=== PATIENT | female | born 1980 | race Two or more races ===

== ENCOUNTER → 2019-12-24 | Outpatient (CLI) | payer OTHER | END | disposition home or self-care (01) | LOC: LAB 15:11 | PROVIDERS: ATTEND Nurse Practitioner Family | DX: U07.1 COVID-19 (principal) ==

== ENCOUNTER → 2021-07-26 | Outpatient (CLI) | payer BC ==
[2021-07-26 07:29] LABS: Basophils # (auto) 0 10 ^3/uL (0-0.2); Basophils % (auto) 0.6 % (0.0-2.0); Eosinophils # (auto) 0.3 10 ^3/uL (0-0.8); Eosinophils % (auto) 4.7 % (0.0-7.0); Hematocrit 39.9 % (36.0-46.0); Hemoglobin 13.1 g/dL (12.2-16.2); Lymphocytes # (auto) 2.2 10 ^3/uL (0.4-5.4); Lymphocytes % (auto) 33.4 % (10.0-50.0); Mean Corpuscular Hemoglobin 28.7 pg (28.0-32.0); Mean Corpuscular Hgb Conc. 32.9 g/dL (32.0-36.0); Mean Corpuscular Volume 87.4 fL (80.0-100.0); Monocytes # (auto) 0.4 10 ^3/uL (0-1.3); Monocytes % (auto) 5.6 % (0.0-12.0); Neutrophils # (auto) 3.7 10 ^3/uL (1.6-8.6); Neutrophils % (auto) 55.7 % (37.0-80.0); Nucleated Red Blood Cells % 0.1 %; Red Blood Cells 4.57 10^6/uL (4.0-5.20); Red Cell Distribution Width 14.8 % (11.8-14.3); White Blood Cell 6.7 10^3/uL (4.4-10.8)
[2021-07-26 07:59] LABS: Urine Bacteria FEW /hpf (None Seen); Urine Blood Negative /uL (Negative); Urine Specific Gravity 1.027 (1.001-1.035); Urine WBC 1 /hpf (0 - 5)
[2021-07-26 08:11] LABS: Albumin 3.2 g/dL (3.4-5.0); Calcium 9.1 mg/dL (8.5-10.1); Potassium 4.1 mmol/L (3.5-5.1)
[2021-07-26 08:17] LABS: Bilirubin, Total 0.2 mg/dL (0.2-1.0); Total Protein 6.9 g/dL (6.4-8.2)
[2021-07-26 09:00] LABS: Free T4 (Free Thyroxine) 0.9 ng/dL (0.89-1.76)
[2021-07-26 09:01] LABS: Free T3 2.84 pg/mL (2.3-4.2)
== END | disposition home or self-care (01) ==
LOC: LAB 06:47
PROVIDERS: ATTEND Student in an Organized Health Care Education/Training Program
DX: R73.9 Hyperglycemia, unspecified (principal); R03.0 Elevated blood-pressure reading, without diagnosis of hypertension
CPT/HCPCS: 36415; 80053; 80061; 81001; 82306; 83036; 84439; 84443; 84481; 85025

== ENCOUNTER → 2024-02-21 | Outpatient (CLI) | payer BC ==
[2024-02-21 11:13] LABS: Urine Bacteria None Seen /hpf (None Seen)
[2024-02-21 11:47] LABS: Basophils # (auto) 0 10 ^3/uL (0-0.2); Basophils % (auto) 0.4 % (0.0-2.0); Eosinophils # (auto) 0.2 10 ^3/uL (0-0.8); Eosinophils % (auto) 1.7 % (0.0-7.0); Hematocrit 43.3 % (36.0-46.0); Lymphocytes # (auto) 3.1 10 ^3/uL (0.4-5.4); Lymphocytes % (auto) 27.5 % (10.0-50.0); Mean Corpuscular Hemoglobin 27.4 pg (28.0-32.0); Mean Corpuscular Hgb Conc. 32.4 g/dL (32.0-36.0); Mean Corpuscular Volume 84.7 fL (80.0-100.0); Monocytes # (auto) 0.6 10 ^3/uL (0-1.3); Monocytes % (auto) 5.4 % (0.0-12.0); Neutrophils # (auto) 7.3 10 ^3/uL (1.6-8.6); Platelet Count (auto) 400 10^3/uL (140-450); Red Blood Cells 5.11 10^6/uL (4.0-5.20); Red Cell Distribution Width 14.1 % (11.8-14.3); White Blood Cell 11.3 10^3/uL (4.4-10.8)
[2024-02-21 12:01] LABS: Urine Blood Negative /uL (Negative); Urine Clarity Clear (Clear); Urine Color Light-Yellow (Yellow); Urine Mucus FEW (None Seen); Urine Protein, UAD Negative (Negative); Urine Specific Gravity 1.028 (1.001-1.035); Urine Urobilinogen Normal (Negative); Urine WBC <1 /hpf (0 - 5)
[2024-02-21 12:47] LABS: Alanine Aminotransferase 17 U/L (7-40); Alkaline Phosphatase 57 U/L (46-116); Anion Gap 6 (5-15); BUN/Creatinine Ratio 21.3 (10.0-20.0); Blood Urea Nitrogen 16 mg/dL (9-23); Calcium 9.9 mg/dL (8.7-10.4); Carbon Dioxide 26 mmol/L (20-31); Chloride 107 mmol/L (98-107); Glucose 80 mg/dL (74-106); Potassium 4.2 mmol/L (3.5-5.1); Sodium 139 mmol/L (136-145); Triglycerides 41 mg/dL (< 150)
[2024-02-21 12:48] LABS: LDL Cholesterol 108 mg/dL (< 100)
[2024-02-21 12:49] LABS: Albumin 4.3 g/dL (3.2-4.8); Aspartate Aminotransferase 14 U/L (13-40); Bilirubin, Total 0.3 mg/dL (0.2-1.0); Cholesterol 186 mg/dL (< 200); HDL Cholesterol 71 mg/dL (40-59)
== END | disposition home or self-care (01) ==
LOC: LAB 10:25
PROVIDERS: ATTEND Nurse Practitioner
DX: I10 Essential (primary) hypertension (principal); E78.5 Hyperlipidemia, unspecified; R93.9 Diagnostic imaging inconclusive due to excess body fat of patient
CPT/HCPCS: 36415; 80053; 80061; 81001; 83036; 84443; 85025

== ENCOUNTER 2024-04-28 09:23 | Emergency (ER) | payer BC ==
[~2024-04-28] VITALS: Ht 160 cm; Wt 118.9 kg
[2024-04-28] MEDS ORDERED: AUG875T PO (11:08)
[2024-04-28] MEDS ORDERED: PSEU1SYP6 PO (11:08)
[2024-04-28] MEDS ORDERED: DEX4T PO (11:08)
[2024-04-28] MEDS ORDERED: IBUP-1455 PO (11:08)
--- NOTE | 2024-04-28 11:10 | ED.PDOC ---
Eye-HPI HPI Comments 43-year-old female patient presents to the clinic for sore throat, bilateral ear pain, and cough. Patient reports that she went to urgent care as prescribed amoxicillin. Patient states that the pain did not decreased she returned to ear and Saturday was told to discontinue the amoxicillin and started a Z-Bautista. Patient denies any fevers. Patient denies any drainage from the ears. Patient also complaining of pain on left side of sec. denies any dental pain. Chief Complaint: Earache Time Seen by MD: 09:41 Primary Care Provider: AKIKO Allergies: Uncoded Allergies: NUTS (Allergy, Unknown, 04/28/24) Home Meds Active Scripts Dexamethasone (Decadron) 4 Mg Tb, 2 TAB PO DAILY for 5 Days, #10 TAB 0 Refills Prov:ENRIQUE GAMEZ [facility] 04/28/24 Kywsfyewvsm-Oddutipd-Vn (Bromphen/Pseudoephedrine 30-2-10 mg/5Ml) 1 Syp Syp, 10 ML PO Q6HP PRN for 10 Days, #400 ML Prov:ENRIQUE GAMEZ [facility] 04/28/24 Ibuprofen Micronized (Ibuprofen) 800 Mg Tab, 600 MG PO TID PRN for 10 Days, #30 TAB 0 Refills Prov:ENRIQUE GAMEZ [facility] 04/28/24 Amoxicillin & Pot Clavulanate (AUGMENTIN TABLET) 875 Mg Tb, 875 MG PO BID for 10 Days, #20 TAB 0 Refills Prov:ENRIQUE GAMEZ [facility] 04/28/24 Mode of Arrival: Ambulatory Past Medical History PAST MEDICAL HISTORY: Denies Surgical History: Denies all surgeries STAFF PHYSICIAN History: No Pertinent STAFF PHYSICIAN History Family History Family History: Reviewed,noncontributory to illness, No family hx of Cancer, No family hx of DM, No family hx of Heart magaly, No family hx of HTN, No family hx ofKidney magaly, No family hx of Liver magaly, No family hx of Lung magaly, No family hx of Stroke Social History Smoker: Non-Smoker Alcohol: Denies ETOH Use Drugs: Denies Drug Use Lives In: Home Constitutional: denies: chills, diaphoresis, fatigue, fever, malaise, sweats, weakness, others EENTM: reports: ear pain (bilateral), throat pain, others (left neck pain) Respiratory: denies: cough, hemoptysis, orthopnea, SOB at rest, shortness of breath, SOB with excertion, stridor, wheezing, others Cardiovascular: denies: chest pain, dizzy spells, diaphoresis, Dyspnea on exertion, edema, irregular heart beat, left arm pain, lightheadedness, palpitations, PND, syncope, others Gastrointestinal: denies: abdomen distended, abdominal pain, blood streaked bowels, constipated, diarrhea, dysphagia, difficulty swallowing, hematemesis, melena, nausea, poor appetite, poor fluid intake, rectal bleeding, rectal pain, vomiting, others Genitourinary: denies: abnormal vagina bleeding, burning, dyspareunia, dysuria, flank pain, frequency, hematuria, incontinence, pain, , vagina discharge, urgency, others Neurological: denies: dizziness, fainting, headache, left sided numbness, left sided weakness, numbness, paresthesia, pre-existing deficit, right sided numbness, right sided weakness, seizure, speech problems, tingling, tremors, weakness, others Musculoskeletal: denies: back pain, gout, joint pain, joint swelling, muscle pain, muscle stiffness, neck pain, others Integumetry: denies: bruises, change in color, change in hair/nails, dryness, laceration, lesions, lumps, rash, wounds, others Allergic/Immunocompromised: denies: Difficulty Healing, Frequent Infections, Hives, Itching, others Hematologic/Lymphatic: denies: anemia, blood clots, easy bleeding, easy bruising, swollen glands, others Endocrine: denies: excessive hunger, excessive sweating, excessive thirst, excessive urination, flushing, intolerance to cold, intolerance to heat, unexplained weight gain, unexplained weight loss, others Psychiatric: denies: anxiety, bipolar disorder, depression, hopeless, panic disorder, schizophrenia, sleepless, suicidal, others All Other Systems: Reviewed and Negative Physical Exam General Appearance: No Apparent Distress, Normal HEENT: Pharyngeal Erythema, TM Abnormal (R) (bulging and erythema on right TM) Neck: Full Range of Motion, Non-Tender, Normal, Normal Inspection Respiratory: Chest Non-Tender, Lungs Clear, No Accessory Muscle Use, No Respiratory Distress, Normal Breath Sounds Cardiovascular: No Edema, No JVD, No Murmur, No Gallop, Normal Peripheral Pulses, Regular Rate/Rhythm Breast Exam: Deferred Gastrointestinal: No Organomegaly, Non Tender, No Pulsatile Mass, Normal Bowel Sounds, Soft Genitalia: Deferred Pelvic: Deferred Rectal: Deferred Extremities: No calf tenderness, Normal capillary refill, Normal inspection, Normal range of motion, Non-tender, No pedal edema Musculoskeletal : Apperance: Normal Neurologic: Alert, 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 Was a procedure done?: No EENT DIFF Eye: N/A Ear: Otitis Externa, Otitis Media, Perforation, Pharyngitis, Sinusitis Nose: N/A Mouth: N/A Sore Throat: Peritonsillar Abscess, Peritonsillar Cellulitis, Pharyngitis, Streptococcal, Viral Pharyngitis, URI X-Ray, Labs, Meds, VS Vital Signs Date Time Temp Pulse Resp B/P (MAP) Pulse Ox O2 Delivery O2 Flow Rate FiO2 04/28/24 12:07 17 97 Room Air* 0 21 04/28/24 12:06 98.1 78 17 118/82 (94) 97 98.1 04/28/24 09:35 99.1 97 16 141/82 (101) 98 Current Medications Medications (Trade) Dose Ordered Sig/Kenna Route Start Time Stop Time Status Last Admin Penicillin G Benzathine (Bicillin L-A) 1,200,000 units ONCE ONCE IM 04/28/24 11:00 04/28/24 11:01 DC 04/28/24 11:49 Dexamethasone Sodium Phosphate (Decadron Injection) 10 mg ONCE ONCE PO 04/28/24 11:00 04/28/24 11:01 DC 04/28/24 11:49 Benzocaine (Hurricaine [place]) 1 spr ONCE ONCE MT 04/28/24 11:00 04/28/24 11:01 DC 04/28/24 11:48 Ketorolac Tromethamine (Toradol Injection) 60 mg ONCE ONCE IM 04/28/24 11:15 04/28/24 11:16 DC 04/28/24 11:50 X-Ray, Labs, Meds, VS Comment Patient advised to take antibiotics as prescribed. Patient advised to take the cough medicine as prescribed. Patient advised to stay home from work for the next 3 days. Patient to follow up with primary care physician. Patient return to ER if she is not getting better. On re-evaluation patient has symptomatic improvement. Patient is stable for discharge at this time. All test results and diagnostic imaging have been interpreted. All diagnostic findings, discharge care, and education instruction provided to the patient. Follow-up with PCP in 2-3 days Patient verbalized understanding, discharge instructions and agrees to treatment plan Vital signs are stable Patient is ambulatory Patient advised of which symptoms necessitate a return visit to the emergency room. Patient to return emergency room for any new worsening symptoms. Patient is aware that the purpose of this visit is for an acute medical emergency requiring emergent stabilization. Chronic conditions, including malignancies have not been ruled out. Patient is instructed to follow up with PCP as directed for continued care and workup. If unable to arrange follow up, patient is to return to the emergency room for reassessment. Patient was given verbal and written discharge instructions and acknowledges understanding Time of 1ST Reevaluation: 11:38 Reevaluation 1ST: Unchanged Patient Education/Counseling: Diagnosis, Treatment, Prognosis, Need For Follow Up Family Education/Counseling: No Family Present Departure 1 Departure Time of Disposition: 11:09 Impression: Primary Impression: Acute tonsillitis Qualified Codes: J03.80 - Acute tonsillitis due to other specified organisms Additional Impression: Otitis media Qualified Codes: H66.91 - Otitis media, unspecified, right ear Disposition: 01 HOME / SELF CARE / HOMELESS Condition: Stable e-Prescriptions Dexamethasone (Decadron) 4 Mg Tb 2 TAB PO DAILY for 5 Days, #10 TAB 0 Refills Prov: ENRIQUE GAMEZ [facility] 04/28/24 Mptkllunleq-Ogywdkyu-Ew (Bromphen/Pseudoephedrine 30-2-10 mg/5Ml) 1 Syp Syp 10 ML PO Q6HP PRN for 10 Days, #400 ML Prov: ENRIQUE GAMEZ [facility] 04/28/24 Ibuprofen Micronized (Ibuprofen) 800 Mg Tab 600 MG PO TID PRN for 10 Days, #30 TAB 0 Refills Prov: ENRIQUE GAMEZ [employer] 04/28/24 Amoxicillin & Pot Clavulanate (AUGMENTIN TABLET) 875 Mg Tb 875 MG PO BID for 10 Days, #20 TAB 0 Refills Prov: ENRIQUE GAMEZ 04/28/24 Discharged With: Self Critical Care Note Critical Care Time?: No Stability Stability form required: No Heart Score Heart Score: Heart Score Response (Comments) Value History N/A 0 EKG N/A 0 Age N/A 0 Risk Factors N/A 0 Troponin N/A 0 Total 0 ENRIQUE GAMEZ [facility] Apr 28, 2024 11:10
[2024-04-28] MEDS: BENZOCAINE (DENTAL) 20 % SPRAY 60ML MT ONE (11:48)
[2024-04-28] MEDS: DexAMETHasone SOD PHOS 10MG/1ML VIAL INJ PO ONE (11:49)
[2024-04-28] MEDS: PENICILLIN G BENZ 1,200,000 UNITS/2 ML SYRG IM ONE (11:49)
[2024-04-28] MEDS: KETOROLAC TROMETH 60MG/2ML VIAL IM ONE (11:50)
[2024-04-28 12:06] VITALS: BP 118/82; PULSE 78; TEMP 98.1
[2024-04-28 12:07] VITALS: RESP 17; O2SAT 97
== END 2024-04-28 12:09 | disposition home or self-care (01) ==
LOC: ER 09:23
DX: J03.80 Acute tonsillitis due to other specified organisms (principal); H66.93 Otitis media, unspecified, bilateral; Z88.8 Allergy status to other drugs, medicaments and biological substances; Z79.899 Other long term (current) drug therapy
CPT/HCPCS: 96372; 99284; J0561; J1100; J1885

== ENCOUNTER → 2025-01-21 | Outpatient (CLI) | payer BC ==
[~2025-01-21] MED LIST: AUG875T PO; DEX4T PO; IBUP-1455 PO; PSEU1SYP6 PO
[2025-01-21 08:47] LABS: Hematocrit 40.1 % (36.0-46.0); Hemoglobin 13.9 g/dL (12.2-16.2); Mean Corpuscular Hemoglobin 28.6 pg (28.0-32.0); Mean Corpuscular Volume 82.7 fL (80.0-100.0); Nucleated Red Blood Cells % 0.0 %
[2025-01-21 08:49] LABS: Urine Protein, UAD Negative (Negative)
[2025-01-21 09:35] LABS: Alanine Aminotransferase 11 U/L (7-40); Albumin 4.2 g/dL (3.2-4.8); Alkaline Phosphatase 56 U/L (46-116); Anion Gap 8 (5-15); BUN/Creatinine Ratio 14.3 (10.0-20.0); Blood Urea Nitrogen 11 mg/dL (9-23); Calcium 9.5 mg/dL (8.7-10.4); Carbon Dioxide 26 mmol/L (20-31); Chloride 105 mmol/L (98-107); Glucose 84 mg/dL (74-106); Potassium 4.2 mmol/L (3.5-5.1); Sodium 139 mmol/L (136-145); Total Protein 7.7 g/dL (5.7-8.2); Triglycerides 39 mg/dL (< 150)
[2025-01-21 09:36] LABS: Bilirubin, Total 0.5 mg/dL (0.2-1.0); Cholesterol 195 mg/dL (< 200)
[2025-01-21 09:41] LABS: HDL Cholesterol 66 mg/dL (40-59)
== END | disposition home or self-care (01) ==
LOC: LAB 08:24
PROVIDERS: ATTEND Nurse Practitioner
DX: I10 Essential (primary) hypertension (principal); E73.9 Lactose intolerance, unspecified; E78.5 Hyperlipidemia, unspecified
CPT/HCPCS: 36415; 80053; 80061; 81001; 83036; 84443; 85025

== ENCOUNTER 2025-01-26 10:44 | Outpatient (CLI) | payer BC | END 2025-01-26 17:00 | disposition home or self-care (01) | LOC: LAB 10:44 | PROVIDERS: ATTEND Nurse Practitioner | DX: Z01.84 Encounter for antibody response examination (principal) | CPT/HCPCS: 86735; 86762; 86765; 86787 ==

== ENCOUNTER 2025-03-24 15:08 | Emergency (ER) | payer BC ==
[~2025-03-24] VITALS: Ht 160 cm; Wt 111.1 kg
[2025-03-24 15:09] VITALS: TEMP 98
[2025-03-24 15:56] LABS: Hematocrit 38.9 % (36.0-46.0); Hemoglobin 12.7 g/dL (12.2-16.2); Mean Corpuscular Hemoglobin 27.4 pg (28.0-32.0); Mean Corpuscular Volume 83.8 fL (80.0-100.0); Nucleated Red Blood Cells % 0.1 %
--- NOTE | 2025-03-24 15:58 | ED.PDOC ---
GI ASSESSMENT HPI Comments HPI: This is a 44 year old female presenting to the ED with chief complaint of abdominal pain. Patient reports that she has been experiencing RUQ abdominal pain with associated nausea and intermittent lower abdominal pain for the past 2 days. Patient relays that her pain comes on intermittently and when it does, it is a 7/10. Patient states she has no pain at this time and her pain is not related to food intake. Patient denies any vomiting, diarrhea, chest pain, SOB, hematemesis, fever, or chills. Past Medical history: Denies Past Surgical history: Denies Medications: Reviewed Social History: Denies smoking, ETOH, and drug use. Allergies: NKDA HPI: Poor Historian. REVIEW OF SYSTEMS: CONSTITUTIONAL: Denies acute: fever, diaphoresis, chills, generalized weakness. HEAD: Denies acute: headache, photophobia Eyes: Denies acute: Double vision, vision loss, eye pain, eye discharge. EARS: Denies acute: tinnitus, hearing loss, ear discharge, ear pain, THROAT: Denies acute: sore throat, swelling, difficulty swallowing , pain with swallowing, change in voice. NECK: Denies acute: neck pain, neck swelling, stiff neck. HEART: Denies acute : chest pain, palpitations, LUNGS: Denies acute: SOB, wheezing, cough, hemoptysis ABDOMEN: Denies acute: Vomiting, diarrhea, melena , hematemesis, hematochezia SKIN: Denies acute: rash, redness, lesions, itchiness. EXTREMITIES: Denies acute: calf pain, numbness, tingling, weakness, denies pain in extremity. Denies acute: Low back pain. Neuro: Denies acute: focal neurological deficit, motor or sensory focal neurological deficit, tremors, seizure like activity, confusion, dizziness, change in mental status, loss of bowel or bladder function, cauda equina like symptoms. : Denies acute: dysuria, hematuria, flank pain, increase in urinary frequency. PSYCH: Denies acute: hallucination, suicidal ideation, homicidal ideation. FEMALE: Denies acute: abnormal vaginal bleeding, foul odor, unusual discharge. PHYSICAL EXAM: General: ----no----acute distress, awake and alert. Head: normocephalic, atraumatic. No raccoon's eyes, no moffett sign. Neck: supple, trachea is midline, no swelling. Throat: Normal phonation. Eyes:, no erythema, no purulent discharge, no proptosis, no icterus. Heart: regular rate, regular rhythm, no significant murmur appreciated. Lungs: no apparent respiratory distress, Able to speak in full sentences. No wheezing, no rhonchi, no crackles. No stridors Clear to auscultation bilaterally. Abdomen: Right upper quadrant tender to palpation, non distended, soft, no guarding, no rebound, + bowel sounds. Neuro: Awake, Alert, oriented to name, self, situation, follows commands GCS=15. Speech is normal. Skin: no petechia, no purpura, no cyanosis, non-pale, not jaundice. Lower extremities: --no - Pitting edema no deformity, no focal swelling, no calf TTP. Makes eye contact. moves all four extremities. Face: no apparent facial droop. Ambulating in the ED independently. ED COURSE: DISCLAIMER: This medical document was created using an electronic medical record system with voice recognition software and computerized dictation system. Although this document has been carefully reviewed, there might still be some phonetic and typographical errors. Occasional wrong-word or "sound-alike" substitutions may have occurred due to the inherent limitations of voice recognition software. These areas are purely typographical due to imperfections of the software programs and do not reflect any compromise in the patient's medical care. Please read the chart carefully and recognize, using context, where these substitutions have occurred. Chief Complaint: Abdominal Pain Time Seen by MD: 15:55 Primary Care Provider: AKIKO Martel Notes: Medications, Allergies Allergies: Uncoded Allergies: NUTS (Allergy, Unknown, 04/28/24) Home Meds Active Scripts Dexamethasone (Decadron) 4 Mg Tb, 2 TAB PO DAILY for 5 Days, #10 TAB 0 Refills Prov:ENRIQUE GAMEZ [employer] 04/28/24 Ohupjkbkkey-Rzwulxax-Ya (Bromphen/Pseudoephedrine 30-2-10 mg/5Ml) 1 Syp Syp, 10 ML PO Q6HP PRN for 10 Days, #400 ML Prov:ENRIQUE GAMEZ [facility] 04/28/24 Ibuprofen Micronized (Ibuprofen) 800 Mg Tab, 600 MG PO TID PRN for 10 Days, #30 TAB 0 Refills Prov:ENRIQUE GAMEZ [facility] 04/28/24 Amoxicillin & Pot Clavulanate (AUGMENTIN TABLET) 875 Mg Tb, 875 MG PO BID for 10 Days, #20 TAB 0 Refills Prov:ENRIQUE GAMEZ [facility] 04/28/24 Information Source: Patient Mode of Arrival: Ambulatory Was a procedure done? Was a procedure done?: No GI differential Dx Differential Diagnosis: Cholecystitis, Gastritis/PUD X-Ray, Labs, Meds, VS Vital Signs Date Time Temp Pulse Resp B/P (MAP) Pulse Ox O2 Delivery O2 Flow Rate FiO2 03/24/25 15:09 98.0 81 18 98/69 98 98.0 Lab Test 03/24/25 16:00 03/24/25 15:39 Range/Units Urine Color Light-yellow Yellow Urine Clarity Clear Clear Urine pH 6.5 5.0-9.0 Urine Specific Roxana 1.028 1.001-1.035 Urine Protein Negative Negative Urine Ketones Negative Negative Urine Blood Trace H Negative /uL Urine Nitrite Negative Negative Urine Bilirubin Negative Negative Urine Urobilinogen Normal Negative mg/dL Urine Leukocyte Esterase Negative Negative /uL Urine RBC 1 0 - 4 /hpf Urine Microscopic WBC < 1 0-5 /HPF Urine Squamous Epithelial Cells Few <5 /hpf Urine Bacteria None seen None Seen /hpf Urine Glucose Normal Normal mg/dL Urine Test Negative Negative White Blood Count 12.4 H 4.4-10.8 10^3/uL Red Blood Count 4.64 4.0-5.20 10^6/uL Hemoglobin 12.7 12.2-16.2 g/dL Hematocrit 38.9 36.0-46.0 % Mean Corpuscular Volume 83.8 80.0-100.0 fL Mean Corpuscular Hemoglobin 27.4 L 28.0-32.0 pg Mean Corpuscular Hemoglobin Concent 32.7 32.0-36.0 g/dL Red Cell Distribution Width 14.7 H 11.8-14.3 % Platelet Count 369 140-450 10^3/uL Mean Platelet Volume 7.9 6.9-10.8 fL Neutrophils (%) (Auto) 71.3 37.0-80.0 % Lymphocytes (%) (Auto) 21.5 10.0-50.0 % Monocytes (%) (Auto) 5.6 0.0-12.0 % Eosinophils (%) (Auto) 1.2 0.0-7.0 % Basophils (%) (Auto) 0.4 0.0-2.0 % Neutrophils # (Auto) 8.8 H 1.6-8.6 10 ^3/uL Lymphocytes # (Auto) 2.7 0.4-5.4 10 ^3/uL Monocytes # (Auto) 0.7 0-1.3 10 ^3/uL Eosinophils # (Auto) 0.2 0-0.8 10 ^3/uL Basophils # (Auto) 0.1 0-0.2 10 ^3/uL Nucleated Red Blood Cells 0.1 % Sodium Level 141 136-145 mmol/L Potassium Level 4.4 3.5-5.1 mmol/L Chloride Level 107 98-107 mmol/L Carbon Dioxide Level 25 20-31 mmol/L Anion Gap 9 5-15 Blood Urea Nitrogen 19 9-23 mg/dL Creatinine 0.68 0.550-1.02 mg/dL Glomerular Filtration Rate Calc 111 >90 mL/min BUN/Creatinine Ratio 27.9 H 10.0-20.0 Serum Glucose 86 74-106 mg/dL Lactic Acid Level 0.6 0.4-2.0 mmol/L Calcium Level 9.2 8.7-10.4 mg/dL Total Bilirubin 0.3 0.2-1.0 mg/dL Direct Bilirubin < 0.1 <0.3 mg/dL Aspartate Amino Transferase (AST) 20 13-40 U/L Alanine Aminotransferase (ALT) 19 7-40 U/L Alkaline Phosphatase 59 46-116 U/L Troponin I High Sensitivity < 3 L </=34 ng/L Total Protein 7.0 5.7-8.2 g/dL Albumin 3.8 3.2-4.8 g/dL Lipase 47 12-53 U/L Time of 1ST Reevaluation: 16:55 Reevaluation 1ST: Unchanged Patient Education/Counseling: Diagnosis, Treatment Family Education/Counseling: No Family Present Departure 1 Departure Time of Disposition: 16:29 Impression: Primary Impression: Right upper quadrant pain Disposition: 01 HOME / SELF CARE / HOMELESS Condition: Stable Additional Instructions: Additional instructions: Please read all instructions provided in this packet carefully. You MUST follow-up with your primary care/family doctor in 1 to 2 days. If you are unable to see your primary care/family doctor, please return to our emergency room for re-assessment and re-evaluation in 1 to 2 days. Return to the emergency room here in our facility or to the nearest ER [facility] if your symptoms change or worsen. CONSULTATIONS: you MUST Follow-up for consultation as soon as possible with: -gastroenterology and general surgery in 1-2 days. Please call for appointment You MUST call the consultants office yourself to make an appointment. You may need to arrange that through your insurance and/or your primary/family doctor. If you are unable to see the solar energy consultant and designer in 1 to 2 days, you must return to our emergency room (or any other ER of your choice) for re-assessment and re- evaluation. Adequate fluid hydration. Although you have been discharged from the Emergency Department, this does not mean that you have a "clean bill of health". No definitive diagnosis for your symptoms has been made today. It is possible that you are in the process of developing a serious illness. This is why you must return to the ED without fail if any new or worsening symptoms develop. Fatty greasy spicy food. Avoid caffeinated products. Avoid NSAIDs. Below is a copy of your radiological report for follow up: [place] [address] Ph: [phone] DIAGNOSTIC IMAGING Diagnostic Imaging Report : [id number] Signed PATIENT: DULCE HERRERA ACCT: [id number] UNIT: [id number] : 1980 LOC: ER ROOM / BED: / AGE / SEX: 44 / F ADM STATUS: REG ER SERVICE 1535 ORDERING PHYSICIAN: LIZZ GOODWIN DO PROCEDURE(s): ABDL - ABDOMEN LIMITED REASON: ruq pain ORDER NUMBER(s): [id number], ACCESSION NUMBER(s): [id number] ULTRASOUND ABDOMEN, LIMITED RIGHT UPPER QUADRANT: REASON FOR EXAM: Right upper quadrant abdominal pain TECHNIQUE: Real-time sector scans in the transverse and longitudinal planes were obtained through the right upper quadrant of the abdomen. FINDINGS: The liver is of normal size and contour. There is hepatopetal flow in the portal vein. There is no intrahepatic biliary ductal dilatation. The common bile duct measures 4 mm. No gallstones identified. There is trace sludge within the gallbladder. There is no gallbladder wall thickening nor pericholecystic fluid. There is no sonographic Hernandez's sign. The visualized portion of the pancreas is unremarkable. The right kidney measures 11.9 cm. Left kidney measures 11.9 cm. No hydronephrosis or nephrolithiasis is identified. There is no evidence of right renal mass. There is an anechoic simple cyst at the superior pole of the left kidney measuring 1.6 cm. The visualized portions of the abdominal aorta demonstrate no evidence of aneurysmal dilatation. The visualized inferior vena cava is unremarkable. There is no free fluid identified in the right upper quadrant. IMPRESSION: No gallstone identified. Trace gallbladder sludge. No sonographic Hernandez's sign. ATED BY: DAVIS BOTELLO MD DICTATED DATE/TIME: 03/24/25 1607 SIGNED BY: DAVIS BOTELLO MD SIGNED DATE/TIME: 03/24/25 1607 CC: Discharged With: Self Critical Care Note Critical Care Time?: No I personally scribed for LIZZ GOODWIN DO ([email or web address]) on 03/24/25 at 15:58. Electronically submitted by Red Cruz ([email or web address]). LIZZ GOODWIN DO Mar 24, 2025 15:58
--- NOTE | 2025-03-24 16:09 | DVH ---
ULTRASOUND ABDOMEN, LIMITED RIGHT UPPER QUADRANT: REASON FOR EXAM: Right upper quadrant abdominal pain TECHNIQUE: Real-time sector scans in the transverse and longitudinal planes were obtained through the right upper quadrant of the abdomen. FINDINGS: The liver is of normal size and contour. There is hepatopetal flow in the portal vein. There is no intrahepatic biliary ductal dilatation. The common bile duct measures 4 mm. No gallstones identified. There is trace sludge within the gallbladder. There is no gallbladder wall thickening nor pericholecystic fluid. There is no sonographic Hernandez's sign. The visualized portion of the pancreas is unremarkable. The right kidney measures 11.9 cm. Left kidney measures 11.9 cm. No hydronephrosis or nephrolithiasis is identified. There is no evidence of right renal mass. There is an anechoic simple cyst at the superior pole of the left kidney measuring 1.6 cm. The visualized portions of the abdominal aorta demonstrate no evidence of aneurysmal dilatation. The visualized inferior vena cava is unremarkable. There is no free fluid identified in the right upper quadrant. IMPRESSION: No gallstone identified. Trace gallbladder sludge. No sonographic Hernandez's sign.
[2025-03-24 16:16] LABS: Urine Protein, UAD Negative (Negative)
[2025-03-24 16:17] LABS: Alanine Aminotransferase 19 U/L (7-40); Albumin 3.8 g/dL (3.2-4.8); Alkaline Phosphatase 59 U/L (46-116); Anion Gap 9 (5-15); BUN/Creatinine Ratio 27.9 (10.0-20.0); Bilirubin, Total 0.3 mg/dL (0.2-1.0); Blood Urea Nitrogen 19 mg/dL (9-23); Calcium 9.2 mg/dL (8.7-10.4); Carbon Dioxide 25 mmol/L (20-31); Chloride 107 mmol/L (98-107); Glucose 86 mg/dL (74-106); Lipase 47 U/L (12-53); Potassium 4.4 mmol/L (3.5-5.1); Sodium 141 mmol/L (136-145); Total Protein 7.0 g/dL (5.7-8.2)
[2025-03-24] MEDS: SUCRALFATE 1 GM TAB PO ONE (16:30)
[2025-03-24] MEDS: LIDOCAINE VISCOUS 2% 15ML UD PO ONE (16:30)
[2025-03-24] MEDS: PANTOPRAZOLE 40 MG TAB PO ONE (16:30)
[2025-03-24 17:34] VITALS: BP 128/74; PULSE 74; RESP 18; O2SAT 98
== END 2025-03-24 17:36 | disposition home or self-care (01) ==
LOC: EEVIPCON 15:08 → ER 15:08
DX: R10.11 Right upper quadrant pain (principal); Z79.52 Long term (current) use of systemic steroids
CPT/HCPCS: 36415; 76705; 80053; 81001; 81025; 82248; 83605; 83690; 84484; 85025